=== PATIENT | male | born 1990 | race Caucasian/White ===

== ENCOUNTER 2020-04-04 13:15 | Emergency (ER) | payer SELFPAY ==
[2020-04-04 13:17] VITALS: BP 147/88; PULSE 97; RESP 22; TEMP 37; O2SAT 99
--- NOTE | 2020-04-04 13:27 | DI.RAD.S_ITS ---
PROCEDURE: XR FINGER RT MIN 2V INDICATIONS: table saw TECHNIQUE: AP hand, 2 views of the 2nd finger(s) acquired. COMPARISON: None. FINDINGS: Bones: No fractures or dislocations. No suspicious bony lesions. Soft tissues: Soft tissue swelling and laceration involving tip of 2nd finger is seen. No radiopaque foreign body. No suspicious soft tissue calcifications. IMPRESSION: No gross acute 2nd finger fracture or dislocation. Soft tissue laceration and swelling involving tip of 2nd digit. No radiopaque foreign body. Dictated by: Glenn Rene M.D. on 04/04/2020 at 15:03 Approved by: Glenn Rene M.D. on 04/04/2020 at 15:04
[2020-04-04] MEDS: LIDOCAINE JELLY 2% 5 ML 1 APPLIC TOP (13:38)
[2020-04-04] MEDS: TET,DIPH,PERTUSS(ACELL),VAC/PF 0.5 ML SYRINGE IM (13:39)
--- NOTE | 2020-04-04 16:35 | PC.NURSE ---
wound cleansed with 300ml high pressure irrigant. Surgicel placed to wound and gauze roll and coban placed for pressure dressing. Pt tolerated well and ambulated to bathroom.
--- NOTE | 2020-04-04 19:28 | ED_ITS ---
HPI - Wound/Laceration <ARMANDO Tracey - Last Filed: 04/04/20 19:34> General Chief Complaint: Wound/Laceration Stated Complaint: right hand index finger cut Time Seen by Provider: 04/04/20 14:38 Source: patient Mode of arrival: Ambulatory Limitations: no limitations History of Present Illness HPI narrative: The patient is a 29-year-old male nonsmoker who denies pertinent medical history presents with a chief complaint of an injury to the tip of his right index finger. He states he cut off the tip of it with a table saw. Does not know when his last tetanus was. States it is painful. Denies any previous injuries to this area. Right-hand dominant. Related Data Previous Rx's Medication Instructions Recorded hydrocodone-acetaminophen [[place]] 1 tab PO Q4-6H PRN #7 tab 04/04/20 Allergies Allergy/AdvReac Type Severity Reaction Status Date / Time No Known Drug Allergies Allergy Verified 04/04/20 13:23 Review of Systems <ARMANDO Tracey - Last Filed: 04/04/20 19:34> Review of Systems Narrative: GENERAL: Denies chills, fatigue, malaise, fever, sweats. HEENT: Denies sinus pain, ear pain, sore throat, difficulty swallowing, dizziness. RESPIRATORY: Denies dyspnea, cough, wheezing, hemoptysis, sputum. CARDIOVASCULAR: Denies chest pain, palpitations, orthopnea, edema, GASTROINTESTINAL: Denies nausea, vomiting, abdominal pain, diarrhea, constipa tion, melena. : Denies dysuria, frequency, incontinence, hematuria, urinary retention. MUSCULOSKELETAL: See HPI SKIN: See HPI NEUROLOGIC: Denies weakness, headache, numbness, change in speech, confusion, seizures, incoordination. PSYCHIATRIC: No concerning psychosocial issues. 12 point review of systems is negative except for those stated above Exam <ARMANDO Tracey - Last Filed: 04/04/20 19:34> Narrative Exam Narrative: GENERAL: This is a well-nourished, well-developed patient, in mild distress. HEAD: Atraumatic. Normocephalic. No temporal or scalp tenderness. EYES: Pupils equal round and reactive. Extraocular motions intact. No scleral icterus. No injection or drainage. ENT: Nose without bleeding, purulent drainage or septal hematoma. Wearing a mask. Airway patent. NECK: Trachea midline. No JVD or lymphadenopathy. Supple, nontender, no meningeal signs. CARDIOVASCULAR: Regular rate and rhythm RESPIRATORY: No cough. No increased respiratory effort. No accessory muscle use EXTREMITIES: Avulsion noted to right 2nd digit. Oozing blood. 1 x 1 cm avulsion, with slight involvement of nail. Able to flex and extend fully against resistance. Positive right radial pulse. NEURO: AOx3. SKIN: See musculoskeletal exam Initial Vital Signs Initial Vital Signs: Vital Signs Temperature 98.6 F 04/04/20 13:17 Pulse Rate 97 H 04/04/20 13:17 Respiratory Rate 22 04/04/20 13:17 Blood Pressure 147/88 H 04/04/20 13:17 Pulse Oximetry 99 04/04/20 13:17 <Angela Ng MD - Last Filed: 04/05/20 07:34> Initial Vital Signs Initial Vital Signs: Vital Signs Temperature 98.6 F 04/04/20 13:17 Pulse Rate 97 H 04/04/20 13:17 Respiratory Rate 22 04/04/20 13:17 Blood Pressure 147/88 H 04/04/20 13:17 Pulse Oximetry 99 04/04/20 13:17 Scores <ARMANDO Tracey - Last Filed: 04/04/20 19:34> GCS Maria L coma scale eye opening: Spontaneous [place] coma scale verbal response: Orientated Maria L coma scale motor response: Obey commands Maria L coma scale total score: 15 Course <ARMANDO Tracey - Last Filed: 04/04/20 19:34> Orders Ordered: Discontinued Medications Diphtheria/Tetanus/Acell Pertussis (Tet,Diph,Pertuss(Acell),Vac/Pf 0.5 Ml Syringe) 0.5 ml IM .ONCE ONE Stop: 04/04/20 13:29 Last Admin: 04/04/20 13:39 Dose: 0.5 ml Documented by: FAITH Lidocaine HCl (Lidocaine Jelly 2% 5 Ml) 1 applic TOP NOW ONE Stop: 04/04/20 13:28 Last Admin: 04/04/20 13:38 Dose: 1 applic Documented by: FAITH Vital Signs Vital signs: Vital Signs - 8 hr 04/04/20 13:17 Temperature 98.6 F Pulse Rate 97 H Respiratory Rate 22 Blood Pressure 147/88 H Pulse Oximetry 99 <Angela Ng MD - Last Filed: 04/05/20 07:34> Orders Ordered: Discontinued Medications Diphtheria/Tetanus/Acell Pertussis (Tet,Diph,Pertuss(Acell),Vac/Pf 0.5 Ml Syringe) 0.5 ml IM .ONCE ONE Stop: 04/04/20 13:29 Last Admin: 04/04/20 13:39 Dose: 0.5 ml Documented by: FAITH Lidocaine HCl (Lidocaine Jelly 2% 5 Ml) 1 applic TOP NOW ONE Stop: 04/04/20 13:28 Last Admin: 04/04/20 13:38 Dose: 1 applic Documented by: FAITH Vital Signs Vital signs: Vital Signs - 8 hr 04/04/20 13:17 Temperature 98.6 F Pulse Rate 97 H Respiratory Rate 22 Blood Pressure 147/88 H Pulse Oximetry 99 MDM - Wound/Laceration <ARMANDO Tracey - Last Filed: 04/04/20 19:34> Imaging Data Extremity x-ray #1: Radiologist's Impression: [address] [place] [id number] ReportSigned Patient: Jeffrey Morrow [facility]#: [id number]: 1990Acct:[id number]/Sex: 29 / MDate of Service: 04/04/20Loc: EDAccession Number: [id number] Procedure: XR finger RT min 2V Ordering Provider: Leonila Rodriguez PROCEDURE: XR FINGER RT MIN 2V INDICATIONS: table saw TECHNIQUE: AP hand, 2 views of the 2nd finger(s) acquired. COMPARISON: None. FINDINGS: Bones: No fractures or dislocations. No suspicious bony lesions. Soft tissues: Soft tissue swelling and laceration involving tip of 2nd finger is seen. No radiopaque foreign body. No suspicious soft tissue calcifications. IMPRESSION: No gross acute 2nd finger fracture or dislocation. Soft tissue laceration and swelling involving tip of 2nd digit. No radiopaque foreign body. Dictated by: Glenn Rene M.D. on 04/04/2020 at 15:03 Approved by: Glenn Rene M.D. on 04/04/2020 at 15:04 [facility] Narrative Medical decision making narrative: The patient is a 29-year-old male who presents with a chief complaint of an avulsion to his right 2nd digit. No acute fractures. No visible bone. Given avulsion nature, unable to suture closed. Wound was cleansed by nursing and dressed with Surgicel. Discussed at length follow up primary care provider, monitoring for signs and symptoms of infection such as extending redness etcetera. Given light duty note for work. Give small pain medication prescription. Patient has no questions or concerns upon discharge and states understanding return precautions as well as follow-up care. Discharge Plan Departure Patient Disposition: Home Clinical Impression: Avulsion of finger tip Qualifiers: Encounter type: initial encounter Qualified Code(s): S61.209A - Unspecified open wound of unspecified finger without damage to nail, initial encounter Instructions: Minor Wounds (Alternative Therapy), DI for Avulsion Laceration (Not Requiring Sutures), Skin Wound Activity Restrictions/Additional Instructions: Thank you for trusting us with your care today As I discussed, your x-ray shows no acute fracture. This does not rule out a soft tissue injury such as a ligament or tendon injury. It is important that you follow up with primary care provider, especially if worsening or no improvement. There can be fractures that did not show up on initial x-ray. As discussed, your wound was unable to be sutured closed. We have used Surgicel to help stop the bleeding. Please watch for signs of infection including extending redness, decreased range of motion, fever etcetera Please follow up with these occur. I have given you contact information to the [facility] health mineral resources inspector to help you identify primary care provider Please come back to the emergency department for any acute concerns I sent a prescription of pain medicine to [facility] I have given you a prescription of a narcotic for pain. Be aware that this can be constipating and sedating. I encouraged taking with a stool softener, pushing fluids and fiber. Do not take and drive, operate heavy machinery, etc. Do not combine it with any other sedating substances such as alcohol. The combination of narcotics and alcohol and/or other sedatives can be lethal. Please be aware that we do not provide refills of controlled substances in the emergency department. Please follow up with her primary care provider. Please do not submerge your wound into dirty water such as pool water etcetera as this can increase her chance of infection. I have given you a note for 2 days off work as well as light duty. Prescriptions: New hydrocodone-acetaminophen [[place]] 5-325 mg tablet 1 tab PO Q4-6H PRN (Reason: pain) Qty: 7 RF: 0 Referrals: [facility] [Outside] Stand Alone Forms: Work Release Note <Angela Ng MD - Last Filed: 04/05/20 07:34> [facility] Att[facility]: I was immediately available in the department for consultation throughout this patient's visit. I agree with documentation as above. Angela Ng MD
== END 2020-04-04 17:53 | disposition home or self-care (01) ==
PROVIDERS: Emergency Provider Nurse Practitioner Family
DX: S61.209A Unspecified open wound of unspecified finger without damage to nail, initial encounter (principal); W29.8XXA Contact with other powered hand tools and household machinery, initial encounter; Z23 Encounter for immunization
CPT/HCPCS: 73140; 90471; 99283; 90715